=== PATIENT | female | born 1995 | race Two or more races ===

== ENCOUNTER 2024-06-21 12:29 | Inpatient (IN) | payer MEDICAID, SELFPAY ==
[2024-06-21] VITALS (106 sets, daily range): BP systolic 104–143; BP diastolic 55–83; PULSE 78–123; RESP 18–97; TEMP 36.4–36.8; O2SAT 76–100; BMI 35.9
[2024-06-21 13:59] LABS: Basophils # (Auto) 0.1 Thou/mm3 (0.0-0.2); Basophils % (Auto) 1 % (0-2.5); Eosinophils # (Auto) 0.1 Thou/mm3 (0.0-0.5); Eosinophils % (Auto) 1 % (0-10); Hematocrit 34.3 % (36.0-46.0); Hemoglobin 12.4 g/dL (12.0-16.0); Immature Granulocytes % (Auto) 1 % (0-0); Immature Granulocytes Auto 0.04 Thou/mm3 (0.00-0.00); Lymphocytes # (Auto) 1.7 Thou/mm3 (1.0-4.8); Lymphocytes % (Auto) 20 % (10-50); Mean Corpuscular HGB Conc 36.2 g/dl (31.0-37.0); Mean Corpuscular Hemoglobin 31.4 pg (25.0-35.0); Mean Corpuscular Volume 87 fL (80-100); Monocytes # (Auto) 0.6 Thou/mm3 (0.0-0.8); Monocytes % (Auto) 7 % (0-12); Neutrophils # (Auto) 6.3 Thou/mm3 (1.8-7.7); Neutrophils % (Auto) 71 % (37-80); Nucleated Red Blood Cell % 0 /100 WBC (0); Platelet Count 176 Thou/mm3 (140-440); Red Blood Count 3.95 Miln/mm3 (4.00-5.20); White Blood Count 8.8 Thou/mm3 (3.6-11.0)
[2024-06-21 14:35] LABS: Syphilis Nonreactive (Nonreactive)
[2024-06-21] MEDS: fentaNYL CIT INJ 50 mCg/ML AMP 2ML 100 MCG IV (17:04)
[2024-06-21] MEDS: RINGERS LACTATED 1000 ML 1,000 ML 100 ML IV ×2 (18:35→20:40)
--- NOTE | 2024-06-21 20:49 | PD.LDANTE ---
Documentation for date of: 06/21/24 OB Labor/Induct. HPI History of Present Illness Chief complaint: labor : 4 Para: 2 Term pregnancies: 2 pregnancies: 0 Living children: 2 History of Abortions: Spontaneous and Elective: 1 History of Vaginal deliveries: 2 History of sections: No History of : No Date of last menstrual period: 09/16/23 [place]: 06/22/24 Gestational Age (weeks): 39 Gestational Age (days): 4 Gestational age based on last menstrual period: 39 History of present illness: 29-year-old 4 para 2 admit to labor and Delivery. Patient is been followed at Dr Gonzales's office for care. First visit 10 weeks. Reports contractions since 6 in the morning. Denies bleeding leaking or bleeding. Reports movement. Patient states she has had no problems with . Patient is O+, antibody screen negative, RPR nonreactive, rubella immune, hepatitis B negative, hep C negative, HIV negative, GC and Chlamydia were both negative. 1 hour Glucola negative. Carrier screens negative. GBS negative denies social habits. Denies surgery. Denies chronic illness. History of Present Dating criteria: LMP confirmed by 1st trimester US Adequate Care: Yes Ultrasounds: normal 1st trimester US and normal mid trimester US Obstetrical complications: none Medical complications: none Labs Labs: Positive: Rubella Titre, Negative: RPR, Hepatitis B, HIV, Chlamydia, Gonorrhea and Group Beta Strep and Unknown: Herpes Type 1, Herpes Type 2 and Covid-19 Review of Systems Review of Systems Systems Reviewed: All systems reviewed, normal except as documented Past Medical History Surgical History SURGICAL: Negative Section Meds Home Medications and Allergies Home Medications ?Medication ?Instructions ?Recorded ?Confirmed ?Type prenat.vits,florian,gna-veqs-gertt 1 tab PO QDAY 04/29/20 04/29/20 History Allergies Allergy/AdvReac Type Severity Reaction Status Date / Time No Known Drug Allergies Allergy Verified 06/21/24 12:51 OB Exam Physical Exam Vital signs: Temp Pulse Resp BP Pulse Ox O2 Del Method 98.3 F 96 20 113/58 L 99 Room Air 06/21/24 19:36 06/21/24 20:41 06/21/24 18:39 06/21/24 20:41 06/21/24 20:49 06/21/24 12:38 Narrative: Alert and oriented. Normal heart rate and rhythm. Lungs clear no wheezes. Gravid abdomen. Gynecoid pelvis. Estimated weight 7 and half pounds. Vaginal exam admission was 50%, 3. -3. Vertex. Posterior. heart rate category 1 with accelerations and moderate variability and contractions are about every 4 to 6 minutes moderate Routine Cardiovascular Exam Cardiovascular: Present RRR Detailed Labor and Delivery Exam Dilation (cm): 3-4 Effacement (%): 50 Cervix position: posterior station: -3 Consistency: soft Presentation: Vertex Cervical ripeness score: 6 monitor decelerations: None moth exterminator variability: Moderate (11-25) Contraction frequency (min): 4-6 Contraction duration (sec): 30 Tachysystole: No Contraction intensity: Moderate OB Results Labs 06/21/24 13:08 Labs: Short CBC 06/21/24 Range/Units 13:08 WBC 8.8 (3.6-11.0) Thou/mm3 Hgb 12.4 (12.0-16.0) g/dL Hct 34.3 L (36.0-46.0) % Plt Count 176 (140-440) Thou/mm3 OB Assessment & Plan Assessment and Plan (1) Normal labor and delivery: Status: Acute Additional Plan Induction method: per misoprostol protocol Plan: induction, anticipate NVD and consult MD martniez
[2024-06-21] MEDS: OXYTOCIN in NS 30 units 30 UNIT/500 ML BAG IV (21:10)
[2024-06-21] MEDS: MISOPROSTOL 200 mCg TABLET 800 MCG PR (22:46)
[2024-06-21] MEDS: TRANEXAMIC ACID 1,000 MG IVPB 1,000 MG/100 ML BAG 200 MG IV (22:50)
[2024-06-21] MEDS: OXYTOCIN INJ 10 UNIT/ML VIAL IM (22:59)
--- NOTE | 2024-06-21 23:06 | OBDSUM_ITS ---
Data ([place]) Data Hx Section: No : 4 Term: 2 : 0 Livin Abortions: Spontaneous & Theraputic: 1 Delivery Data ([place]) Labor Data Initiation of labor: Induction Induction/Augmentation Agent: Pitocin ROM date: 06/21/24 ROM time: 20:20 Amniotic membrane rupture type: Artificial Amniotic fluid description: Clear Delivery Data EDC: 06/22/24 EDC calculated by:: LMP/early US confirmation Date of arrival to unit: 06/21/24 Time of arrival to unit: 12:29 Onset of labor date: 06/21/24 Onset of labor time: 06:00 Complete dilation date: 06/21/24 Complete dilation time: 22:37 delivery date: 06/21/24 delivery time: 22:44 Gestational age (weeks): 39 Gestational age (days): 4 Placenta delivery date: 06/21/24 Placenta delivery time: 22:50 Delivered by: Shannon Ma Delivery nurse: Joanie Dominguez nurse: Hailey Cubing Machine Tender at delivery: No Support person(s) at delivery: - Jayant Delivery Method Delivery method: Normal Vaginal Delivery Presentation: Vertex position: OA Anesthesia Type Anesthesia Type: Epidural Anesthesia type: fentanyl x1 Delivery Room Medications Delivery room medications: Pitocin 10 u IM, Pitocin 20 u IV and Cytotec 800 OH Placenta Placenta delivery description: Spontaneous (placenta intact, inspected) Cord blood sent to lab: Yes cord blood collection: Cord Blood Type Episiotomy Episiotomy description: None (intact) EBL Estimated blood loss (ml): 400 Umbilical Cord cord description: 3 Vessels Leonard Data ([place]) Leonard Data 's gender: Male weight (gms): 3680 g Weight (pounds): 8 lbs and 1.8 ozs 1 minute: 9 5 minutes: 9
[2024-06-22] VITALS (17 sets, daily range): BP systolic 109–133; BP diastolic 63–86; PULSE 77–114; RESP 16–18; TEMP 36.6–37; O2SAT 96–100
[2024-06-22] MEDS: IBUPROFEN TAB 400 MG TABLET 800 MG PO ×3 (00:44→17:10)
[2024-06-22] MEDS: ACETAMINOPHEN 325 MG TABLET PO (03:06)
--- NOTE | 2024-06-22 04:54 | ESPR_ITS ---
Subjective Subjective Interval history: No complaints of pain. No dizziness. Bonding and breast-feeding Exam Vital Signs Temp Pulse Resp BP Pulse Ox O2 Del Method 98 F 85 20 125/70 100 Room Air 06/22/24 00:56 06/22/24 00:56 06/21/24 18:39 06/22/24 00:56 06/22/24 00:56 06/21/24 12:38 Narrative Exam Vital signs stable afebrile. Breasts are soft. Fundus firm below the umbilicus. Perineum is intact no swelling. Small lochia. Uterus well involuted. Negative Homans' sign. 2+ DTRs Objective Labs 06/21/24 13:08 Labs: Laboratory Results - last 24 hr 06/21/24 13:08 WBC 8.8 RBC 3.95 L Hgb 12.4 Hct 34.3 L MCV 87 MCH 31.4 MCHC 36.2 RDW Std Deviation 40.0 Plt Count 176 Neut % (Auto) 71 Lymph % (Auto) 20 [place] % (Auto) 7 Eos % (Auto) 1 Baso % (Auto) 1 Neut # (Auto) 6.3 Lymph # (Auto) 1.7 [place] # (Auto) 0.6 Eos # (Auto) 0.1 Baso # (Auto) 0.1 Immature Gran # (Auto) 0.04 H Absolute Nucleated RBC 0.00 Immature Gran % 1 H Nucleated RBC % 0 Syphilis Serology Nonreactive Blood Type O Positive Antibody Screen NEGATIVE Blood Bank Wristband ID Yes Assessment & Plan Problem List (1) Normal labor and delivery: Status: Acute Assessment Comment Assessment comment: 24 hr pp Plan Comment Plan Comment: Discharge home with baby tomorrow morning. Continue ibuprofen or Tylenol for cramps. Increase ambulation. Increase fluids. Support patient with breast- feeding. Time Spent With Patient Time: Total time spent is greater than 50% in coordination of care (as documented) at patient's floor/unit and/or counseling patient:
[2024-06-22] MEDS: DOCUSATE SOD 100 MG CAPSULE PO ×2 (08:00→22:57)
[2024-06-22 09:02] LABS: Basophils # (Auto) 0.1 Thou/mm3 (0.0-0.2); Basophils % (Auto) 1 % (0-2.5); Eosinophils # (Auto) 0.1 Thou/mm3 (0.0-0.5); Eosinophils % (Auto) 0 % (0-10); Hematocrit 33.2 % (36.0-46.0); Hemoglobin 11.9 g/dL (12.0-16.0); Immature Granulocytes % (Auto) 0 % (0-0); Immature Granulocytes Auto 0.05 Thou/mm3 (0.00-0.00); Lymphocytes # (Auto) 2.5 Thou/mm3 (1.0-4.8); Lymphocytes % (Auto) 22 % (10-50); Mean Corpuscular HGB Conc 35.8 g/dl (31.0-37.0); Mean Corpuscular Hemoglobin 31.6 pg (25.0-35.0); Mean Corpuscular Volume 88 fL (80-100); Monocytes # (Auto) 0.6 Thou/mm3 (0.0-0.8); Monocytes % (Auto) 6 % (0-12); Neutrophils # (Auto) 8.1 Thou/mm3 (1.8-7.7); Neutrophils % (Auto) 71 % (37-80); Nucleated Red Blood Cell % 0 /100 WBC (0); Platelet Count 139 Thou/mm3 (140-440); Red Blood Count 3.77 Miln/mm3 (4.00-5.20); White Blood Count 11.3 Thou/mm3 (3.6-11.0)
[2024-06-22] MEDS: ACETAMINOPHEN 325 MG TABLET 650 MG PO (12:26)
[2024-06-22] MEDS: MEASLES, MUMPS & RUBELLA VACC 0.5 ML VIAL SCi (17:01)
[2024-06-23 00:30] VITALS: BP 117/73; PULSE 88; RESP 18; TEMP 36.7; O2SAT 97
[2024-06-23] MEDS: IBUPROFEN TAB 400 MG TABLET 800 MG PO (05:23)
[2024-06-23 05:44] VITALS: BP 124/82; PULSE 70; RESP 18; TEMP 36.6; O2SAT 98
--- NOTE | 2024-06-23 07:00 | ESPR_ITS ---
Subjective Subjective Interval history: No complaints of pain. No dizziness. Bonding and breast-feeding Exam Vital Signs Temp Pulse Resp BP Pulse Ox O2 Del Method 97.8 F 70 18 124/82 98 Room Air 06/23/24 05:44 06/23/24 05:44 06/23/24 05:44 06/23/24 05:44 06/23/24 05:44 06/23/24 00:30 Narrative Exam Vital signs stable afebrile. Breasts are soft. Fundus firm below the umbilicus. Perineum intact no swelling. Small lochia. Uterus well involuted. Negative Homans' sign. 2+ DTRs. Objective Labs 06/22/24 07:44 Labs: Laboratory Results - last 24 hr 06/22/24 07:44 WBC 11.3 H RBC 3.77 L Hgb 11.9 L Hct 33.2 L MCV 88 MCH 31.6 MCHC 35.8 RDW Std Deviation 40.0 Plt Count 139 L D Neut % (Auto) 71 Lymph % (Auto) 22 [place] % (Auto) 6 Eos % (Auto) 0 Baso % (Auto) 1 Neut # (Auto) 8.1 H Lymph # (Auto) 2.5 [place] # (Auto) 0.6 Eos # (Auto) 0.1 Baso # (Auto) 0.1 Immature Gran # (Auto) 0.05 H Absolute Nucleated RBC 0.00 Immature Gran % 0 Nucleated RBC % 0 Assessment & Plan Problem List (1) Normal labor and delivery: Status: Acute Assessment Comment Assessment comment: 24 hr pp Plan Comment Plan Comment: Discharge home with baby. Continue vitamins and iron. Tylenol ibuprofen for pain. Discussed danger signs symptoms and signs and symptoms of infection. I discussed ER precautions and parameters. Increase fluid and rest. And patient to make an appointment with her OB for 3-week Time Spent With Patient Time: Total time spent is greater than 50% in coordination of care (as documented) at patient's floor/unit and/or counseling patient:
--- NOTE | 2024-06-23 07:02 | PD.LDDS ---
DS: Providers Provider Date of admission: 06/21/24 13:31 Primary care physician: Physician No Primary/Family Admitting Provider: Catalino Mcelroy MD Attending Provider on Admission: Shannon Daniel CNM Consults: 06/21/24 23:35 Referral Routine Comment: Attending Provider on DC: Shannon Daniel CNM Discharging Provider: Shannon Daniel CNM DS: Diagnosis Problem List Completed Was Problem List Reviewed/Reconciled?: Yes Summary/Hosp Course Brief History: 29-year-old 4 para 2 admit to labor and Delivery. Patient is been followed at Dr Gonzales's office for care. First visit 10 weeks. Reports contractions since 6 in the morning. Denies bleeding leaking or bleeding. Reports movement. Patient states she has had no problems with . Patient is O+, antibody screen negative, RPR nonreactive, rubella immune, hepatitis B negative, hep C negative, HIV negative, GC and Chlamydia were both negative. 1 hour Glucola negative. Carrier screens negative. GBS negative denies social habits. Denies surgery. Denies chronic illness. Peripartum Data Delivery Method: Normal Vaginal Delivery Episiotomy Description: None (intact) Time Spent with Patient Time attestation: Total time spent providing and/or coordinating discharge services: Exam Vital Signs Temp Pulse Resp BP Pulse Ox O2 Del Method 97.8 F 70 18 124/82 98 Room Air 06/23/24 05:44 06/23/24 05:44 06/23/24 05:44 06/23/24 05:44 06/23/24 05:44 06/23/24 00:30 Discharge Plan Plan Patient Disposition: HOME (Self Care) Patient condition on transfer: Stable Prescriptions/Referrals Prescriptions/Med Rec: No Action prenat.vits,florian,[id number] Tablet 1 tab PO QDAY ferrous sulfate 325 mg (65 mg iron) tablet,delayed release (DR/EC) 325 mg PO BID Qty: 90 0RF ibuprofen 800 mg tablet 800 mg PO Q8H PRN (Reason: pain) Qty: 30 0RF Referrals: No Primary/Family,Physician [Primary Care Provider] - Patient/Caregiver Discharge Instructions Meds to Beds: No Discharge Activity: activity as tolerated and resume usual activities Other Discharge Activity Instructions:: vaginal rest and no heavy lifting for 6 [address] while taking narcotic. keep incision clean and dry, do not submerge. Education Materials: After a Vaginal , Breast Care After , : Caring for Yourself Print Language: Tajik Activity Restrictions/Additional Instructions: Discharge home with baby. Continue vitamins and iron. Patient can take Tylenol ibuprofen for discomfort. I discussed ER precautions and parameters. Discussed signs symptoms of infection. Discussed danger signs and symptoms. Increase fluids and rest. And call OB to schedule an appointment for 3-week Stand Alone Forms: Kristin Award Info., Patient Portal Info Letter Discharge Order Discharge Orders: Discharge (Routine); Ordered 06/23/24 Ordered By: Shannon Daniel Planned Discharge Date 06/23/24
[2024-06-23 07:17] VITALS: BP 125/75; PULSE 71; RESP 16; TEMP 36.3; O2SAT 97
[2024-06-23] MEDS: DOCUSATE SOD 100 MG CAPSULE PO (07:29)
== END 2024-06-23 07:42 | disposition home or self-care (01) | DRG 560 ==
LOC: S4SX 20:44 → S4NX 06-22 08:04 → S4SX 06-22 14:33
PROVIDERS: Admitting Provider Obstetrics & Gynecology; Visit Provider Advanced Practice Midwife
DX: O80 Encounter for full-term uncomplicated delivery (principal); Z37.0 Single live birth; Z3A.39 39 weeks gestation of pregnancy
CPT/HCPCS: 36415; 59025; 59409; 85025; 86780; 86850; 86900; 86901; 90707; 94762; J2590; J2795; J3010; J3490; J7120; S0191; A9270